=== PATIENT | female | born 1965 | race Caucasian/White ===

== ENCOUNTER 2019-04-19 07:12 | Emergency (ER) | payer OTHER ==
--- OUTSIDE RECORDS SUMMARY | 2019-04-19 07:23 | XMS REPORT | Continuity of Care Document ---
:1965 External Reference #:[id number] Author Name Fei Porter D.P.M Address [address] [place] [address] Care Team Providers Name Role Phone Robina Chavez N.P. - Family Care Team Information Drop Wire Stringer [phone] Problems Active Problems Provider Date Acquired hallux rigidus Fei Porter D.P.M Onset: 06/26/2014 Enthesopathy Fei Porter D.P.M Onset: 06/26/2014 Acquired deformity of toe Fei Porter D.P.M Onset: 06/26/2014 Tinea pedis Fei Porter D.P.M Onset: 08/15/2014 Pain in limb Fei Porter D.P.M Onset: 07/11/2015 Enthesopathy Fei Porter D.P.M Onset: 07/11/2015 Plantar nerve lesion Fei Porter D.P.M Onset: 11/24/2015 Late effect of fracture of lower extremities Fei Porter D.P.M Onset: Benign neoplasm of skin of lower limb Fei Porter D.P.M Onset: 01/06/2016 Dystrophia unguium Fei Porter D.P.M Onset: 02/06/2016 Onychomycosis Fei Porter D.P.M Onset: 05/11/2016 Retained foreign body of eyelid Fei Porter D.P.M Onset: 06/24/2016 Miscellaneous orthopedic devices associated Fei Porter D.P.M Onset: with adverse incidents, not elsewhere classified Other enthesopathy of left foot and ankle Fei Andrews.M Onset: 2016 Needs influenza immunization Onset: 04/14/2017 Note: 7431-9693 Season Callosity Fei MedleyP.M Onset: 05/24/2017 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 Needs influenza immunization Onset: 03/23/2018 Achilles bursitis Fei MedleyP.M Onset: 04/25/2018 Peroneal tendinitis Fei eMdleyP.M Onset: 10/31/2018 Closed fracture of phalanx of foot Fei MedleyP.M Onset: 01/05/2019 Contusion of toe Fei MedleyP.M Onset: 01/05/2019 Hammer toe Fei MedleyP.M Onset: 03/06/2019 Needs influenza immunization Onset: Social History Type Date Description Comments Sex Unknown ETOH Use Occasionally consumes alcohol Tobacco Use Start: Unknown Patient is a current smoker, smokes every day Smoking Status Reviewed: 08/01/18 Patient is a current smoker, smokes every day Allergies, Adverse Reactions, Alerts Active Allergies Reaction Severity Comments Date Codeine 06/26/2014 Medications Active Medications SIG Qnty Indications Ordering Provider Date Duexis Take 1 Tablet 60tabs M77.52 Fei Porter 07/08/2017 800-26.6mg Tablets By Mouth Twice D.P.M Daily Bupropion Hydrochloride Unknown ER (XL) 300mg Tablets ER 24HR Medications Administered in Office Medication SIG Qnty Indications Ordering Provider Date Inj Triamcinolone Acetonide Per Fei Porter D.P.M 11/30/2016 10 MG NDC [id number] Injection Injection Dexamethasone Sodium Fei Porter D.P.M 11/30/2016 Phosphate, 1MG- NDC 43777-216-62 Injection Inject Tendon/Ligament Fei Black.P.M 11/30/2016 Injection Inj Triamcinolone Acetonide Per Fei Porter D.P.M 07/17/2015 10 MG NDC [id number] Injection Injection Dexamethasone Sodium Fei Porter D.P.M 07/17/2015 Phosphate, 1MG- NDC 01199-794-30 Injection Inject Tendon/Ligament Fei MedleyP.M 07/17/2015 Injection Immunizations Description No Information Available Vital Signs Date Vital Result Comment 04/10/2019 7:40am Height 73 inches 6'1" BP Systolic 128 mmHg BP Diastolic 64 mmHg Heart Rate 64 /min O2 % dC Oximetry 99 % 10/31/2018 7:43am Height 73 inches 6'1" Results Description No Information Available Procedures Date Code Description Status 04/10/2019 43919 Pare Hyperkeratotic Lesion, 2-4 Completed 03/06/2019 69839 Debridement Nails Any Method 1-5 Completed 03/06/2019 63656 Pare Hyperkeratotic Lesion, 2-4 Completed 02/01/2019 37694 Destruction Of Flat Warts Or Molluscum Contagiosum, Milia Completed To 14 01/05/2019 52716 X-Ray Foot Complete Completed 11/30/2018 35771 Destruction Of Flat Warts Or Molluscum Contagiosum, Milia Completed To 14 10/31/2018 44721 Destruction Of Flat Warts Or Molluscum Contagiosum, Milia Completed To 14 Medical Devices Description No Information Available Encounters Type Date Location Provider Dx Diagnosis Office Visit 03/06/2019 [place] [facility] Fei Porter M79.672 Pain in left foot 7:30a D.P.M M79.675 Pain in left toe(s) M20.42 Other hammer toe(s) (acquired), left foot L84 Corns and callosities B35.1 Tinea unguium Office Visit 01/05/2019 7:30a [place] [facility] Fei Davis S92.515A Nondisp fx of German MedleyP.M proximal phalanx of left lesser toe(s), init S90.111A Contusion of right great toe w/o damage to nail, init encntr Assessments Date Code Description Provider 04/10/2019 M79.672 Pain in left foot Fei MedleyP.M 04/10/2019 M79.675 Pain in left toe(s) Fei MedleyP.M 04/10/2019 M20.42 Other hammer toe(s) (acquired), left foot Fei MedleyP.M 04/10/2019 L84 Corns and callosities Fei Porter D.P.M 03/06/2019 M79.672 Pain in left foot Fei Porter D.P.M 03/06/2019 M79.675 Pain in left toe(s) Fei Porter D.P.M 03/06/2019 M20.42 Other hammer toe(s) (acquired), left foot Fei Porter D.P.M 03/06/2019 L84 Corns and callosities eFi Porter D.P.M 03/06/2019 B35.1 Tinea unguium Fei Porter D.P.M 02/01/2019 L56.5 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) 02/01/2019 M79.672 Pain in left foot Fei Porter D.P.M 02/01/2019 M79.675 Pain in left toe(s) Fei Porter D.P.M 02/01/2019 S92.515D Nondisplaced fracture of proximal phalanx Fei Porter D.P.M of left lesser toe(s), subsequent encounter for fracture with routine healing 01/05/2019 S92.515A Nondisplaced fracture of proximal phalanx Fei Porter D.P.M of left lesser toe(s), initial encounter for closed fracture 01/05/2019 S90.111A Contusion of right great toe without damage Fei Porter D.P.M to nail, initial encounter 11/30/2018 L56.5 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) 11/30/2018 M79.672 Pain in left foot Fei Porter D.P.M 11/30/2018 M79.675 Pain in left toe(s) Fei Porter D.P.M 11/30/2018 M76.72 Peroneal tendinitis, left leg Fei Porter D.P.M 10/31/2018 L56.5 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) 10/31/2018 M79.672 Pain in left foot Fei Porter D.P.M 10/31/2018 M79.675 Pain in left toe(s) Fei Porter D.P.M 10/31/2018 L60.3 Nail dystrophy Fei Porter D.P.M 10/31/2018 M76.72 Peroneal tendinitis, left leg Fei Porter D.P.M Plan of Treatment Future Appointment(s):05/10/2019 7:30 am - Fei Porter D.P.M at [facility]04/10/2019 - Fei MonMM79.672 Pain in left footComments:No issues assoc with fall seen in the foot or ankle on the left is noted on clinical exam today.M79.675 Pain in left toe(s)M20.42 Other hammer toe( s) (acquired), left footL84 Corns and callositiesComments:2 calluses trimmed. Advised accomodative padding be used to further off weight this area of irritation. Advised shoe modifications to reduce pressure in this area of irritation. Functional Status Description No Information Available Mental Status Description No Information Available Referrals Description No Information Available
--- OUTSIDE RECORDS SUMMARY | 2019-04-19 07:23 | XMS REPORT | Continuity of Care Document ---
:1965 External Reference #:[id number] Author Name Fei Porter D.P.M Address [address] [place] [address] Care Team Providers Name Role Phone Robina Chavez N.P. 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 Needs influenza immunization Onset: 03/23/2018 Achilles bursitis Fei MedleyP.M Onset: 04/25/2018 Peroneal tendinitis Fei MedleyP.M Onset: 10/31/2018 Closed fracture of phalanx of foot Fei MedleyP.M Onset: 01/05/2019 Contusion of toe Fei MedleyP.M Onset: 01/05/2019 Hammer toe Fei MedleyP.M Onset: 03/06/2019 Social History Type Date Description Comments Sex Unknown ETOH Use Occasionally consumes alcohol Tobacco Use Start: Unknown Patient is a current smoker, smokes every day Smoking Status Reviewed: 08/01/18 Patient is a current smoker, smokes every day Allergies, Adverse Reactions, Alerts Active Allergies Reaction Severity Comments Date Codeine 06/26/2014 Medications Active Medications SIG Qnty Indications Ordering Provider Date Duexis One PO bid 60tabs M77.52 Fei Porter 07/08/2017 800-26.6mg D.P.M Tablets Voltaren apply twice a day 100gm M77.52 Fei Porter 07/08/2017 1% Gel to affected areas D.P.M on legs Motrin Ib Unknown Medications Administered in Office Medication SIG Qnty Indications Ordering Provider Date Inj Triamcinolone Acetonide Per Fei Porter D.P.M 11/30/2016 10 MG NDC [id number] Injection Injection Dexamethasone Sodium Fei Porter D.P.M 11/30/2016 Phosphate, 1MG- [facility] 46179-470-78 Injection Inject Tendon/Ligament Fei Porter D.P.M 11/30/2016 Injection Inj Triamcinolone Acetonide Per Fei Porter D.P.M 07/17/2015 10 MG NDC [id number] Injection Injection Dexamethasone Sodium Fei Porter D.P.M 07/17/2015 Phosphate, 1MG- [facility] 71332-235-86 Injection Inject Tendon/Ligament Fei MedleyP.Tim 07/17/2015 Injection Immunizations Description No Information Available Vital Signs Date Vital Result Comment 10/31/2018 7:43am Height 73 inches 6'1" 06/27/2018 7:41am Height 73 inches 6'1" Results Description No Information Available Procedures Date Code Description Status 03/06/2019 44430 Debridement Nails Any Method 1-5 Completed 03/06/2019 94307 Pare Hyperkeratotic Lesion, 2-4 Completed 02/01/2019 14357 Destruction Of Flat Warts Or Molluscum Contagiosum, Milia Completed To 14 01/05/2019 25468 X-Ray Foot Complete Completed 11/30/2018 65635 Destruction Of Flat Warts Or Molluscum Contagiosum, Milia Completed To 14 10/31/2018 66098 Destruction Of Flat Warts Or Molluscum Contagiosum, Milia Completed To 14 09/29/2018 50560 Destruction Of Flat Warts Or Molluscum Contagiosum, Milia Completed To 14 Medical Devices Description No Information Available Encounters Type Date Location Provider Dx Diagnosis Office Visit 03/06/2019 [place] [facility] Fei Porter M79.672 Pain in left foot 7:30a D.P.M M79.675 Pain in left toe(s) M20.42 Other hammer toe(s) (acquired), left foot L84 Corns and callosities B35.1 Tinea unguium Office Visit 01/05/2019 7:30a [place] [facility] Fei Davis S92.515A Nondisp fx of German MedleyP.M proximal phalanx of left lesser toe(s), init S90.111A Contusion of right great toe w/o damage to nail, init encntr Assessments Date Code Description Provider 03/06/2019 M79.672 Pain in left foot Fei MedleyP.M 03/06/2019 M79.675 Pain in left toe(s) Fei MedleyP.M 03/06/2019 M20.42 Other hammer toe(s) (acquired), left foot Fei MedleyP.M 03/06/2019 L84 Corns and callosities Fei Porter D.P.M 03/06/2019 B35.1 Tinea unguium Fei [...] of right great toe without damage Fei Black.P.M to nail, initial encounter 11/30/2018 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.5 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) 11/30/2018 M79.672 Pain in left foot Fei Black.P.M 11/30/2018 M79.675 Pain in left toe(s) Fei Porter D.P.M 11/30/2018 M76.72 Peroneal tendinitis, left leg Fei Porter D.P.M 10/31/2018 L56.5 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) 10/31/2018 M79.672 Pain in left foot Fei Black.P.M 10/31/2018 M79.675 Pain in left toe(s) Fei Black.P.M 10/31/2018 L60.3 Nail dystrophy Fei Porter D.P.M 10/31/2018 M76.72 Peroneal tendinitis, left leg Fei Porter D.P.M 09/29/2018 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 Paddings, shoegear changes, nsaids and surgical options were all reviewed and their questions answered to theirsatisfaction. refill on Duexis will be made, pad with silopad (2 dispensed today). F/U in 1 month to check progress. 2nd toe fracture appears resolved but penitentiary deformity most likely over next 5years. Surgery will be complicated but a hammer toe correction and oswaldo osteotomy suggested.L84 Corns and callositiesComments:2 calluses trimmed. Advised accomodative padding be used to further off weight this area of irritation. Advised shoe modifications to reduce pressure in this area of irritation.B35.1 Tinea unguiumComments:Patient elects for routine debridements of these painful mycotic nails. Left hallux, 2nd 3rd and 5thare painful mycotic nails.I discussed the benefits and risks of laser, topical and oral treatments of onychomycosis. Patient will contact the office [place] for any redness, swelling or pain present. Functional Status Description No Information Available Mental Status Description No Information Available Referrals Description No Information Available
[2019-04-19 07:35] VITALS: BP 118/64
[2019-04-19] MEDS ORDERED: Albuterol 2.5 MG/3 ML NEB.SOL* (0.083%) INH ONE (07:40)
[2019-04-19] MEDS ORDERED: Ipratropium 0.5MG/2.5ML NEB* 0.5 MG/2.5 ML NEB.SOLN INH ONE (07:40)
--- NOTE | 2019-04-19 07:50 | UC ---
Respiratory Complaint HPI - HPI Summary HPI Summary: 53 yo female smoker with onset of sinus pressure and pain which started about a week ago post nasal drip now with cough and chest tightnes Hx of bronchitis Has used inhalers before - History of Current Complaint Chief Complaint: UCRespiratory Stated Complaint: COUGH,CONGESTION Time Seen by Provider: 04/19/19 07:25 Hx Obtained From: Patient Hx Last Menstrual Period: 10 yrs Onset/Duration: Gradual Onset, Lasting Days - 7 Timing: Constant Severity Initially: Mild Severity Currently: Moderate Pain Intensity: 0 Pain Scale Used: 0-10 Numeric Character: Cough: Nonproductive Aggravating Factors: Exertion, Deep Breaths Alleviating Factors: Nothing Associated Signs And Symptoms: Positive: Wheezing, Nasal Congestion, Sinus Discomfort. Negative: Dyspnea, Fever, Chills, Pleuritic Chest Pain, Hemoptysis , Dizziness, Calf Pain, Calf Swelling, Edema, URI, Hoarseness - Allergies/Home Medications Allergies/Adverse Reactions: Allergies Allergy/AdvReac Type Severity Reaction Status Date / Time amoxicillin [From Augmentin] Allergy Hives Verified 04/19/19 07:24 clavulanic acid Allergy Hives Verified 04/19/19 07:24 [From Augmentin] Home Medications: Home Medications BuPROPion XL* [Bupropion XL*] 300 mg PO DAILY 04/19/19 [History Confirmed ] Guaifenesin/Dextromethorphan [Coricidin Hbp Chest Alexey-Cough] 1 each PO PRN [History] Ibuprofen/Famotidine [Duexis] 2 tab PO PRN 04/19/19 [History] PMH/Surg Hx/FS Hx/Imm Hx Previously Healthy: Yes Respiratory History: Bronchitis - Surgical History Surgical History: Yes Surgery Procedure, Year, and Place: hernia repair 1993. ablation, tubal ligation. tonsillectomy. foot surgery x 5. BRONCHOSCOPY - Family History Known Family History: Positive: Cardiac Disease, Hypertension Family History: no family hx of COPD, asthma. father with CAD - Social History Alcohol Use: Occasionally Substance Use Type: None Smoking Status (MU): Light Every Day Tobacco Smoker Type: Cigarettes Amount Used/How Often: 1/2 PPD Length of Time of Smoking/Using Tobacco: 37 Years Have You Smoked in the Last Year: Yes Cessation Counseling: Patient Advised to Stop - Immunization History Most Recent Influenza Vaccination: Not the 2016/2017 Season Review of Systems All Other Systems Reviewed And Are Negative: Yes Constitutional: Positive: Negative Skin: Positive: Negative Eyes: Positive: Negative ENT: Positive: Nasal Discharge, Sinus Congestion Respiratory: Positive: Cough Cardiovascular: Positive: Negative Gastrointestinal: Positive: Negative Genitourinary: Positive: Negative Motor: Positive: Negative Neurovascular: Positive: Negative Musculoskeletal: Positive: Negative Neurological: Positive: Negative Psychological: Positive: Negative Physical Exam Triage Information Reviewed: Yes Appearance: Well-Appearing, No Pain Distress, Well-Nourished Vital Signs: Initial Vital Signs Temp 97.9 F 04/19/19 07:28 Pulse 58 04/19/19 07:28 Resp 18 04/19/19 07:28 BP 118/64 04/19/19 07:28 Pulse Ox 100 04/19/19 07:28 Vital Signs Reviewed: Yes Eyes: Positive: Conjunctiva Clear ENT: Positive: Hearing grossly normal, Pharynx normal, Nasal congestion, TMs normal, Uvula midline. Negative: Nasal drainage, Tonsillar swelling, Tonsillar exudate, Trismus, Muffled voice, Hoarse voice, Sinus tenderness Dental Exam: Normal Neck: Positive: Supple, Nontender, No Lymphadenopathy Respiratory: Positive: No respiratory distress, No accessory muscle use, Wheezing, Other: - bronchospastic cough Cardiovascular: Positive: RRR, No Murmur Musculoskeletal: Positive: ROM Intact, No Edema Neurological: Positive: Alert Psychological Exam: Normal Skin Exam: Normal Re-Evaluation - Re-Evaluation First Eval Re-Evaluation Time: 08:23 Change: Improved - better air movement Respiratory Course/Dx - Differential Dx/Diagnosis Provider Diagnosis: Acute bronchitis, viral, Smoker Discharge ED - Sign-Out/Discharge Documenting (check all that apply): Patient Departure All imaging exams completed and their final reports reviewed: No Studies - Discharge Plan Condition: Stable Disposition: HOME Patient Education Materials: Acute Bronchitis (ED), How to Use a Metered-Dose Inhaler and a Spacer (ED) Referrals: Robina Chavez NP [Primary Care Provider] - 5 Days (if not better) Additional Instructions: you need to decrease or stop smoking rest fluids recheck for fever or other worsening symptoms see you provider next week if not better - Billing Disposition and Condition Condition: STABLE Disposition: Home
[2019-04-19] MEDS ORDERED: predniSONE TAB* 20 MG PO ONE (08:22)
[2019-04-19] MEDS ORDERED: Albuterol HFA INHALER* 8 gm MDI INH ONE (08:22)
== END 2019-04-19 08:41 | disposition home or self-care (01) ==
LOC: UCCORT 07:12
DX: J20.8 Acute bronchitis due to other specified organisms (principal); B96.89 Other specified bacterial agents as the cause of diseases classified elsewhere; F17.210 Nicotine dependence, cigarettes, uncomplicated; Z88.0 Allergy status to penicillin
CPT/HCPCS: 99213; A9270-GY; G0463; J7512

== ENCOUNTER 2019-07-23 19:19 | Emergency (ER) | payer OTHER ==
--- OUTSIDE RECORDS SUMMARY | 2019-07-23 19:30 | XMS REPORT | Continuity of Care Document ---
:1965 External Reference #:[id number] Author Name Fei Porter D.P.M Address [address] [place] [address] Care Team Providers Name Role Phone Robina Chavez N.P. 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P.M 07/17/2015 Phosphate, 1MG- NDC 38919-920-93 Injection Inject Tendon/Ligament Fei Porter D.P.M 07/17/2015 Injection Immunizations Description No Information Available Vital Signs Date Vital Result Comment 04/10/2019 7:40am Height 73 inches 6'1" BP Systolic 128 mmHg BP Diastolic 64 mmHg Heart Rate 64 /min O2 % dC Oximetry 99 % 10/31/2018 7:43am Height 73 inches 6'1" Results Description No Information Available Procedures Date Code Description Status 06/12/2019 82393 Destruction Of Flat Warts Or Molluscum Contagiosum, Milia Completed To 14 05/10/2019 43514 Pare Hyperkeratotic Lesion, 2-4 Completed 04/10/2019 12584 Pare Hyperkeratotic Lesion, 2-4 Completed 03/06/2019 61682 Debridement Nails Any Method 1-5 Completed 03/06/2019 15634 Pare Hyperkeratotic Lesion, 2-4 Completed 02/01/2019 00913 Destruction Of Flat Warts Or Molluscum Contagiosum, Milia Completed To 14 01/05/2019 64528 X-Ray Foot Complete Completed Medical Devices Description No Information Available Encounters Type Date Location Provider Dx Diagnosis [facility] Fe[facility] M79.672 Pain in left foot 7:30a D.P.M M79.675 Pain in left toe(s) M20.42 Other hammer toe(s) (acquired), left foot L84 Corns and callosities B35.1 Tinea unguium Office Visit 01/05/2019 7:30a [place] [facility] Fei Davis S92.515A Nondisp fx of German Campbell proximal phalanx of left lesser toe(s), init S90.111A Contusion of right great toe w/o damage to nail, init encntr Assessments Date Code Description Provider 06/12/2019 L56.5 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) 06/12/2019 M79.672 Pain in left foot Fei Porter D.P.M 05/10/2019 M79.672 Pain in left foot Fei Porter D.P.M 05/10/2019 M79.675 Pain in left toe(s) Fei Ryan Porter D.P.M 05/10/2019 M20.42 Other hammer toe(s) (acquired), left foot Fei TToya Porter D.P.M 05/10/2019 L84 Corns and callosities Fei TToya Porter D.P.M 05/10/2019 L60.3 Nail dystrophy Fei ZoniaToya Porter D.P.M 04/10/2019 M79.672 Pain in left foot Fei Porter D.P.M 04/10/2019 M79.675 Pain in left toe(s) Fei Porter D.P.M 04/10/2019 M20.42 Other hammer toe(s) (acquired), left foot Fei Porter D.P.M 04/10/2019 L84 Corns and callosities Fei Porter D.P.M 03/06/2019 M79.672 Pain in left foot Fei Porter D.P.M 03/06/2019 M79.675 Pain in left toe(s) Fei Porter D.P.M 03/06/2019 M20.42 Other hammer toe(s) (acquired), left foot Fei ZoniaToya Porter D.P.M 03/06/2019 L84 Corns and callosities Fei Porter D.P.M 03/06/2019 B35.1 Tinea unguium Fei Porter D.P.M 02/01/2019 L56.5 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 Porokeratoma reduced this visit sharply. continue treatmentas directed.custom inserts and shoegear as well as possible replacement of her HOKAs in the near future.M79.672 Pain in left foot Functional Status Description No Information Available Mental Status Description No Information Available Referrals Description No Information Available
--- OUTSIDE RECORDS SUMMARY | 2019-07-23 19:30 | XMS REPORT | Continuity of Care Document ---
:1965 External Reference #:[id number] Author Name Fei Porter D.P.M Address [address] [place] [address] Care Team Providers Name Role Phone Robina Chavez N.P. - Family Care Team Information [employer] [phone] Problems Active Problems Provider Date Acquired hallux [...] 2016 Needs influenza immunization Onset: 04/14/2017 Note: 5249-5377 Season Callosity Fei MedleyP.M Onset: 05/24/2017 Disseminated [...] Fei Porter D.P.M 11/30/2016 10 MG NDC [id number] Injection Injection Dexamethasone Sodium Fei Porter D.P.M 11/30/2016 Phosphate, 1MG- NDC 04353-542-11 Injection Inject Tendon/Ligament Fei Black.P.M 11/30/2016 Injection Inj Triamcinolone Acetonide Per Fei Porter D.P.M 07/17/2015 10 MG NDC [id number] Injection Injection Dexamethasone Sodium Fei Porter D.P.M 07/17/2015 Phosphate, 1MG- NDC 65210-284-82 Injection Inject Tendon/Ligament Fei Black.P.M 07/17/2015 Injection Immunizations Description No Information Available Vital Signs Date Vital Result Comment 04/10/2019 7:40am Height 73 inches 6'1" BP Systolic 128 mmHg BP Diastolic 64 mmHg Heart Rate 64 /min O2 % dC Oximetry 99 % 10/31/2018 7:43am Height 73 inches 6'1" Results Description No Information Available Procedures Date Code Description Status 07/19/2019 34745 Destruction Of Flat Warts Or Molluscum Contagiosum, Milia Completed To 14 06/12/2019 23583 Destruction Of Flat Warts Or Molluscum Contagiosum, Milia Completed To 14 05/10/2019 99308 Pare Hyperkeratotic Lesion, 2-4 Completed 04/10/2019 77244 Pare Hyperkeratotic Lesion, 2-4 Completed 03/06/2019 56815 Debridement Nails Any Method 1-5 Completed 03/06/2019 36433 Pare Hyperkeratotic Lesion, 2-4 Completed 02/01/2019 20875 Destruction Of Flat Warts Or Molluscum Contagiosum, Milia Completed To 14 Medical Devices Description No Information Available Encounters Type Date Location Provider Dx Diagnosis Office Visit 03/06/2019 [place] [facility] Fei Porter M79.672 Pain in left foot 7:30a D.P.M M79.675 Pain in left toe(s) M20.42 Other hammer toe(s) (acquired), left foot L84 Corns and callosities B35.1 Tinea unguium Assessments Date Code Description Provider 07/19/2019 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.5 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) 07/19/2019 M79.672 Pain in left foot Fei Black.P.M 07/19/2019 L60.3 Nail dystrophy Fei MedleyP.M 06/12/2019 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.5 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) 06/12/2019 M79.672 Pain in left foot Fei MedleyP.M 05/10/2019 M79.672 Pain in left foot Fei Black.P.M 05/10/2019 M79.675 Pain in left toe(s) Fei Black.P.M 05/10/2019 M20.42 Other hammer toe(s) (acquired), left foot Fei Porter D.P.M 05/10/2019 L84 Corns and callosities Fei Porter D.P.M 05/10/2019 L60.3 Nail dystrophy Fei Porter D.P.M 04/10/2019 M79.672 Pain in left foot Fei Porter D.P.M 04/10/2019 M79.675 Pain in left toe(s) Fei Black.P.M 04/10/2019 M20.42 Other hammer toe(s) (acquired), left [...] D.P.M 02/01/2019 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 Porokeratoma reduced this visit sharply. continue treatmentas directed.custom inserts and shoegear as well as possible replacement of her HOKAs and inserts inthe near future.M79.672 Pain in left footL60.3 Nail dystrophyComments:Reduced nails. Functional Status Description No Information Available Mental Status Description No Information Available Referrals Description No Information Available
--- OUTSIDE RECORDS SUMMARY | 2019-07-23 19:30 | XMS REPORT | Continuity of Care Document ---
:1965 External Reference #:[id number] Demographics Phone Unavailable Preferred Language Unknown Marital Status Unknown Congregation Affiliation Unknown Race Unknown Ethnic Group Unknown Author Name Erin FisherJULIANE Address [address] [place] [address] Problems Active Problems Provider Date Cyst Erin JULIANE Fisher Onset: 06/20/2019 Social History Type Date Description Comments Sex Unknown Tobacco Use Start: Unknown Patient is a current smoker, smokes every day Smoking Status Reviewed: 06/20/19 Patient is a current smoker, smokes every day Allergies, Adverse Reactions, Alerts Active Allergies Reaction Severity Comments Date Augmentin Hives 06/20/2019 Inactive Allergies NKDA 06/20/2001 Medications Active Medications SIG Qnty Indications Ordering Provider Date Azithromycin take two tabs 6tabs H66.91 Erin JULIANE Fisher 06/20/2019 250mg Tablets (500 mg) by mouth one time today, then 250 mg by mouth once daily for four days. Immunizations Description No Information Available Vital Signs Description No Information Available Results Description No Information Available Procedures Description No Information Available Medical Devices Description No Information Available Encounters Description No Information Available Assessments Date Code Description Provider 06/20/2019 H66.91 Acute otitis media Erin JULIANE Fisher Plan of Treatment 06/20/2019 - Erin MadrigalARIAN arcosPH66.91 Acute otitis mediaNew Medication: Azithromycin 250 mg - take two tabs (500 mg) by mouth one time today, then 250 mg by mouth once daily for four days.Comments:Please take azithromycin as prescribed. Please follow up with your primary care provider if symptomsworsen or do not improve in 3-4 days. As discussed you may take acetaminophen or iburpofen every 4-6hours for pain. Patient is allergic to augmentin therefore we are unable to prescribed amox., augmentin, or cefdinir at this time. Functional Status Description No Information Available Mental Status Description No Information Available Referrals Description No Information Available
--- OUTSIDE RECORDS SUMMARY | 2019-07-23 19:30 | XMS REPORT | Continuity of Care Document ---
:1965 External Reference #:[id number] Demographics Phone Unavailable Preferred Language Unknown Marital Status Unknown Buddhism Affiliation Unknown Race Unknown Ethnic Group Unknown Author Name Erin FisherJULIANE Address [address] [place] [address] Problems Active Problems Provider Date Cyst Erin [...] As discussed you may take acetaminophen or ibuprofen every 4-6hours for pain. Patient is allergic to augmentin therefore we are unable to prescribed amox., augmentin, or cefdinir at this time. Functional Status Description No Information Available Mental Status Description No Information Available Referrals Description No Information Available
[2019-07-23 19:50] VITALS: BP 115/83
[2019-07-23 20:13] LABS: Influenza A Molecular Negative (Negative); Influenza B Molecular Negative (Negative)
--- NOTE | 2019-07-23 20:23 | UC ---
FLU HPI - HPI Summary HPI Summary: Pt c/o cough, malaise, fever, chills, fatigue X 4 days. - History of Current Complaint Chief Complaint: UCGeneralIllness Stated Complaint: COUGH, EAR COMPLAINT Time Seen by Provider: 07/23/19 20:02 Hx Obtained From: Patient Hx Last Menstrual Period: 10 yrs ?: No Onset/Duration: Gradual Onset, Lasting Days, Still Present, Worse Since - onset Severity Currently: Mild Severity Initially: Moderate Pain Intensity: 0 Associated Signs & Symptoms: Positive: Fever, Myalgia, Cough, Nasal Congestion Related Hx: Possible Flu/Infectious Exposure - Risk Factors Influenza Risk Factors: Negative - Allergy/Home Medications Allergies/Adverse Reactions: Allergies Allergy/AdvReac Type Severity Reaction Status Date / Time amoxicillin [From Augmentin] Allergy Hives Verified 07/23/19 19:45 clavulanic acid Allergy Hives Verified 07/23/19 19:45 [From Augmentin] Home Medications: Home Medications Guaifenesin/Dextromethorphan [Coricidin Hbp Chest Alexey-Cough] 1 dose PO ONCE [History Confirmed 07/23/19] PMH/Surg Hx/FS Hx/Imm Hx Previously Healthy: Yes - Surgical History Surgical History: Yes Surgery Procedure, Year, and Place: hernia repair 1993. uterineablation. tubal ligation. tonsillectomy. foot surgery x 5. bronchoscopy - Family History Known Family History: Positive: Cardiac Disease, Hypertension Family History: no family hx of COPD, asthma. father with CAD - Social History Occupation: Employed Full-time Lives: With Family Alcohol Use: Occasionally Substance Use Type: None Smoking Status (MU): Light Every Day Tobacco Smoker Type: Cigarettes Amount Used/How Often: 1/2 PPD Length of Time of Smoking/Using Tobacco: 37 Years Have You Smoked in the Last Year: Yes - Immunization History Most Recent Influenza Vaccination: Not the 2016/2017 Season Vaccination Up to Date: No Review of Systems All Other Systems Reviewed And Are Negative: Yes Constitutional: Positive: Fever, Chills, Fatigue Skin: Positive: Negative Eyes: Positive: Negative ENT: Positive: Sinus Congestion Respiratory: Positive: Cough Cardiovascular: Positive: Negative Gastrointestinal: Positive: Negative Genitourinary: Positive: Negative Motor: Positive: Negative Neurovascular: Positive: Negative Musculoskeletal: Positive: Myalgia Neurological/Mental Status: Positive: Negative Psychological: Positive: Negative Is Patient Immunocompromised?: No Physical Exam Triage Information Reviewed: Yes Appearance: Ill-Appearing Vital Signs: Initial Vital Signs Temp 100.0 F 07/23/19 19:46 Pulse 91 07/23/19 19:46 Resp 15 07/23/19 19:46 BP 115/83 07/23/19 19:46 Pulse Ox 100 07/23/19 19:46 Vital Signs Reviewed: Yes Eye Exam: Normal ENT: Positive: Nasal congestion, TM bulging - bilateral Dental Exam: Normal Neck: Positive: Enlarged Nodes @ Respiratory Exam: Normal Cardiovascular Exam: Normal Musculoskeletal Exam: Normal Neurological Exam: Normal Psychological Exam: Normal Skin Exam: Normal Flu Course/Dx - Differential Dx/Diagnosis Differential Diagnosis/HQI/PQRI: Bronchitis, Influenza, Upper Respiratory Infection Provider Diagnosis: Bronchitis Discharge ED - Sign-Out/Discharge Documenting (check all that apply): Patient Departure All imaging exams completed and their final reports reviewed: No Studies - Discharge Plan Condition: Stable Disposition: HOME Prescriptions: Albuterol HFA INHALER* [Ventolin HFA Inhaler*] 2 puff INH Q4H PRN #1 mdi PRN Reason: Wheezing Azithromycin TAB* [Zithromax TAB (Z-NANDO) 250 mg #6 tabs] 2 tab PO .TODAY, THEN 1 DAILY #1 nando Benzonatate CAP* [Tessalon 100 MG CAP*] 100 - 200 mg PO Q8H PRN #30 cap PRN Reason: Cough predniSONE 10 mg TAB [Deltasone 10 MG TAB*] 30 mg PO DAILY #12 tab Patient Education Materials: Acute Bronchitis (ED) Forms: *Work Release Referrals: Robina Chavez NP [Primary Care Provider] - If Needed - Billing Disposition and Condition Condition: STABLE Disposition: Home
== END 2019-07-23 20:34 | disposition home or self-care (01) ==
LOC: UCCORT 19:19
DX: J40 Bronchitis, not specified as acute or chronic (principal); M79.10 Myalgia, unspecified site; F17.210 Nicotine dependence, cigarettes, uncomplicated; Z88.0 Allergy status to penicillin; Z88.1 Allergy status to other antibiotic agents
CPT/HCPCS: 99212; G0463